=== PATIENT | female | born 1955 | race Caucasian/White ===

== ENCOUNTER → 2021-12-21 | Outpatient (CLI) | payer MEDICARE, OTHER ==
--- NOTE | 2021-12-21 12:03 | RAD ---
EXAM: Chest, 2 views. HISTORY: Short of breath. COMPARISON: None. FINDINGS: 2 views of chest are obtained. There is right middle lobe, lingular and bilateral lower lob e linear atelectasis, infiltrate or scarring. There is no consolidation, pleural effusion or pneumoth orax. There is hyperinflation likely due to emphysema. There is a cardiac event monitor overlying the left hemithorax. There are surgical clips within the left neck. There is a small sclerotic lesion wi thin the proximal left humerus. In the absence of known malignancy, this is likely a bone island rath er than enchondroma. IMPRESSION: Right middle lobe, lingular and bilateral lower lobe linear atelectasis, scarring or inte rstitial infiltrate. Electronically signed by: Swathi Day MD (12/21/2021 12:00 PM) [id number]
== END ==
LOC: PMG 11:30
PROVIDERS: ATTEND Nurse Practitioner Family
DX: R05.9 Cough, unspecified (principal); R06.02 Shortness of breath; M25.842 Other specified joint disorders, left hand; Z98.890 Other specified postprocedural states
CPT/HCPCS: 71046